=== PATIENT | male | born 1965 | race African-American/Black ===

== ENCOUNTER 2017-08-26 10:06 | Inpatient (IN) ==
[2017-08-26] MEDS ORDERED: ONDANSETRON 4 MG/2 ML VIAL IV PRN (11:10)
[2017-08-26] MEDS ORDERED: MORPHINE 4 MG/1 ML VIAL IV PRN (11:10)
[2017-08-26] MEDS ORDERED: ASPIRIN 325 MG TABLET PO STA (11:10)
[2017-08-26] MEDS ORDERED: KETOROLAC 30 MG/1 ML VIAL IV PRN (11:14)
[2017-08-26] MEDS ORDERED: ASPIRIN 325 MG TABLET ONE (11:15)
[2017-08-26 11:44] LABS: Basophils % 0.4 % (0.0-0.8); Eosinophils # 0.2 10*3/uL (0.0-0.87); Eosinophils % 4.2 % (0.00-10.9); Hematocrit 41.1 VOL% (42.0-52.0); Hemoglobin 13.5 GM/DL (14.0-18.0); Immature Granulocytes % 0.2 %; Immature Granulocytes Absolute 0.01 #; Lymphocytes # 2.5 10*3/uL (1.4-4.0); Lymphocytes % 52.8 % (21.2-54.2); Mean Corpuscular HGB Conc 32.8 GM/DL (32-36); Mean Corpuscular Hemoglobin 27 PG (27-34); Mean Corpuscular Volume 82.2 FL (87-102); Mean Platelet Volume 11.6 FL (9.6-12.0); Monocytes # 0.4 10*3/uL (0.11-0.8); Monocytes % 8.1 % (1.7-12.7); Neutrophils # 1.7 10*3/uL (1.4-7.4); Neutrophils % 34.3 % (38.7-73.9); Platelet Count 202 T/CUMM (130-400); Red Cell Distribution Width 14.7 % (9.3-17.3); White Blood Count 4.8 T/CUMM (4-12)
[2017-08-26 11:53] LABS: PT Patient Result 10.2 SECS; Partial Thromboplastin Time 28.1 SECS (0-40)
[2017-08-26 12:10] LABS: Albumin 4.1 G/DL (3.4-5.0); Bilirubin,Total 0.4 MG/DL (0.2-1.0); Calcium 9.2 MG/DL (8.5-10.1); Osmolality,Calculated 279.5 MOS/KG (273-304); Potassium 3.7 MMOL/L (3.5-5.1)
[2017-08-26 12:12] LABS: Eosinophils 6 % (0-10); Giant Platelets Few; Hypochromasia 1+; Lymphocytes 56 % (20-55); Platelet Estimate Adequate; Segmented Neutrophils 28 % (50-85); Total Cells Counted 100
[2017-08-26 12:13] LABS: Atypical Lymphocytes Few
[2017-08-26] MEDS ORDERED: BISACODYL 5 MG TABLET PO PRN (15:51)
[2017-08-26] MEDS ORDERED: MAGNESIUM SULF RIDER 2 GM in PREMIX 1 EACH IV PRN (15:51)
[2017-08-26] MEDS ORDERED: ACETAMINOPHEN 325 MG TABLET PO PRN (15:51)
[2017-08-26] MEDS ORDERED: ZALEPLON 5 MG CAPSULE PO PRN (15:51)
[2017-08-26] MEDS ORDERED: POTASSIUM CHLORIDE 20 MEQ TABLET PO PRN ×2 (15:51)
[2017-08-26] MEDS ORDERED: ENOXAPARIN 40 MG/0.4 ML SYRINGE SUBCUT SCH (16:00)
[2017-08-26] MEDS ORDERED: FUROSEMIDE 40 MG/4 ML VIAL IV ONE (16:05)
[2017-08-26] MEDS: LISINOPRIL 10 MG TABLET PO SCH (16:24)
[2017-08-26] MEDS ORDERED: NITROGLYCERIN SL 0.4 MG TABLET SL PRN (16:37)
[2017-08-26] MEDS: ATORVASTATIN 40 MG TABLET PO SCH (17:20)
[2017-08-26 17:44] LABS: Apearance,Urine CLEAR (Clear); Bilirubin,Urine Negative (Negative); Blood, Urine Moderate mg/dL (Negative); Glucose,Urine (UA) Negative (Negative); Ketones,Urine Negative (Negative); Mucus,Urine Occasional /LPF (Occasional); Nitrite,Urine Negative (Negative); Protein,Urine Negative; RBC,Urine 9 /HPF (0-4); Squamous Epithelial Cell,Urine Occasional /HPF (0-10); Urine Color Yellow (Yellow); Urine Specific Gravity 1.014 (1.001-1.035); Urine Urobilinogen < 2.0 EU/DL (0.2-1.0); WBC,Urine <1 /HPF (0-6)
[2017-08-26 18:06] LABS: Barbiturates Screen,Urine Negative (Negative); Benzodiazepines Screen,Urine Negative (Negative); Cannabinoid Screen,Urine Negative (Negative); Opiate Screen,Urine Negative (Negative); Phencyclidine Screen,Urine Negative (Negative)
[2017-08-26] MEDS ORDERED: ENOXAPARIN 30 MG/0.3 ML SYRINGE SUBCUT ONE (18:23)
[2017-08-26 19:22] LABS: Troponin I Only 0.075 NG/ML (0.00-0.045)
[2017-08-26] MEDS: CARVEDILOL 12.5 MG TABLET PO SCH (20:46)
[2017-08-26] MEDS: FAMOTIDINE 20 MG TABLET PO SCH (20:46)
[2017-08-26 21:30] LABS: Troponin I Only 0.068 NG/ML (0.00-0.045)
[2017-08-27 04:58] LABS: Basophils % 0.4 % (0.0-0.8); Eosinophils # 0.3 10*3/uL (0.0-0.87); Eosinophils % 5.3 % (0.00-10.9); Hematocrit 38.2 VOL% (42.0-52.0); Hemoglobin 13.1 GM/DL (14.0-18.0); Immature Granulocytes % 0.2 %; Immature Granulocytes Absolute 0.01 #; Lymphocytes # 2.2 10*3/uL (1.4-4.0); Lymphocytes % 40.9 % (21.2-54.2); Mean Corpuscular HGB Conc 34.3 GM/DL (32-36); Mean Corpuscular Hemoglobin 27 PG (27-34); Mean Corpuscular Volume 79.6 FL (87-102); Mean Platelet Volume 11.4 FL (9.6-12.0); Monocytes # 0.4 10*3/uL (0.11-0.8); Monocytes % 7.9 % (1.7-12.7); Neutrophils # 2.4 10*3/uL (1.4-7.4); Neutrophils % 45.3 % (38.7-73.9); Platelet Count 201 T/CUMM (130-400); Red Cell Distribution Width 14.7 % (9.3-17.3); White Blood Count 5.3 T/CUMM (4-12)
[2017-08-27 05:32] LABS: Albumin 3.8 G/DL (3.4-5.0); Bilirubin,Total 0.4 MG/DL (0.2-1.0); Calcium 8.8 MG/DL (8.5-10.1); Osmolality,Calculated 284.1 MOS/KG (273-304); Potassium 3.6 MMOL/L (3.5-5.1); Total Protein 7.3 G/DL (6.4-8.3)
[2017-08-27 05:33] LABS: Risk Ratio 3.6
[2017-08-27 05:58] LABS: Free T4 (Free Thyroxine) 0.88 NG/DL (0.76-1.46); Thyroid Stimulating Hormone 2.44 uIU/ml (0.358-3.74)
[2017-08-27] MEDS ORDERED: ASPIRIN EC 81 MG TABLET PO SCH (09:00)
[2017-08-27] MEDS: LISINOPRIL 10 MG TABLET PO SCH (12:10)
[2017-08-27] MEDS: FAMOTIDINE 20 MG TABLET PO SCH (12:10)
[2017-08-27] MEDS: CARVEDILOL 12.5 MG TABLET PO SCH (12:11)
[2017-08-27] MEDS: ATORVASTATIN 40 MG TABLET PO SCH (12:11)
[2017-08-27 12:34] VITALS: BP 129/79
== END 2017-08-27 12:53 | disposition home or self-care (01) | DRG 313 ==
LOC: N.ED 10:06 → N.EDINP 13:05 → N.TELEN 14:49
PROVIDERS: ADMIT Internal Medicine; ATTEND Internal Medicine